=== PATIENT | female | born 1975 | race African-American/Black ===

== ENCOUNTER 2025-01-31 10:57 | Emergency (ER) | payer MEDICAID ==
[~2025-01-31] VITALS: Ht 165.1 cm; Wt 104.0 kg
[2025-01-31 11:48] VITALS: O2SAT 98
[2025-01-31] MEDS: ONDANSETRON HCL 4MG TABLET PO ONE (12:18)
[2025-01-31 13:17] LABS: BASOPHILS % 0.7 % (0.0-2.0); EOSINOPHILS % 0.1 % (0.0-5.0); HEMATOCRIT. 47.9 % (36.0-48.0); HEMOGLOBIN. 16.5 g/dL (12.0-16.0); LYMPHOCYTES % 19.8 % (20.0-50.0); MEAN PLATELET VOLUME 8.2 fl (7.4-10.4); MONOCYTES % 9.0 % (2.0-8.0); NEUTROPHILS % 70.4 % (40.0-76.0); PLATELET 423 x1000/uL (130-400); RED BLOOD CELL COUNT 5.47 mill/uL (4.2-5.4); RED CELL DISTRIBUTION WIDTH 13.5 % (11.6-14.6)
[2025-01-31 13:30] LABS: CREATININE 1.0 mg/dL (0.6-1.0)
[2025-01-31 13:31] LABS: UREA NITROGEN BLOOD 17 mg/dL (9-23)
[2025-01-31] MEDS: CLONIDINE 0.1MG TABLET PO ONE (13:57)
[2025-01-31 14:01] LABS: TROPONIN I HIGH SENSITIVITY 10 ng/L (3.0-34)
[2025-01-31] MEDS ORDERED: ONDA4TAB50 MT (15:29)
[2025-01-31] MEDS ORDERED: TOPUD MT (15:29)
[2025-01-31 15:39] VITALS: BP 143/96; PULSE 69; RESP 15; TEMP 37; O2SAT 98
== END 2025-01-31 15:40 | disposition home or self-care (01) ==
LOC: ER 10:57
DX: B34.9 Viral infection, unspecified (principal); I10 Essential (primary) hypertension
CPT/HCPCS: 99285; 71045; 80048; 85025; 84484; 36415; 93005; Q0162